=== PATIENT | female | born 1985 | race Caucasian/White ===

== ENCOUNTER → 2019-03-02 | Outpatient (CLI) | payer BC ==
[~2019-03-02] MED LIST: ACHYD1T PO; IBP800T PO; PREN1TAB39 PO
--- NOTE | 2019-03-05 10:49 | Diagnostic Imaging Report ---
INDICATION: Routine screening. COMPARISON: No prior mammograms are available for comparison. This is a baseline study. TECHNIQUE: 2D and 3D bilateral screening mammography was performed with CAD. FINDINGS: Bilateral breast implants are noted. The implant contours appear to be smooth. The breast parenchyma is heterogeneously dense, limiting the sensitivity of mammography. No discrete mass or malignant appearing microcalcifications are seen. There are benign calcifications present. The axillae are unremarkable. IMPRESSION: No mammographic features suspicious for malignancy are identified. ACR BI-RADS Category 2: Benign findings. Result letter will be mailed to the patient. Note: At least 10% of breast cancer is not imaged by mammography. Dictated by: Dictated on workstation # [id number]
== END ==
LOC: RAD 09:47
PROVIDERS: ATTEND Obstetrics & Gynecology
DX: Z12.31 Encounter for screening mammogram for malignant neoplasm of breast (principal)
CPT/HCPCS: 77067

== ENCOUNTER → 2020-10-29 | Outpatient (CLI) | payer BC ==
--- NOTE | 2020-10-29 14:38 | Diagnostic Imaging Report ---
INDICATION: Left breast lump. TECHNIQUE: Unilateral left 2D and 3D diagnostic mammography was performed. This included spot compression CC as well as routine CC and MLO implant displaced views. Conventional MLO and CC views were also performed. FINDINGS: There is a left breast implant. The implant contour is smooth. The left breast parenchyma is heterogeneously dense, limiting the sensitivity of mammography. A BB marker was placed in the medial left breast. There is a slightly nodular density just deep to the BB on the CC implant displaced view, indeterminate between nodule versus breast parenchyma or perhaps even a dilated duct. No suspicious microcalcifications are seen. The left axilla is unremarkable. IMPRESSION: Additional views show some slight residual nodularity just deep to the BB marker. Further evaluation with ultrasound is recommended and will be performed today. ACR BI-RADS Category 0: Incomplete. (Needs additional imaging evaluation). Result letter will be mailed to the patient. Note: At least 10% of breast cancer is not imaged by mammography. Dictated by: Dictated on workstation # [id number]
--- NOTE | 2020-10-29 18:11 | Diagnostic Imaging Report ---
INDICATION: Left breast lump. Correlation is made with the diagnostic mammogram from earlier the same day. Sonography interrogation area of lump left breast was performed. There is a cyst at the 6:00 location of the left breast, 3 cm from the nipple measuring 11 mm x 9 mm x 9 mm. There is some internal debris. No other masses are seen. No internal vascularity is present. IMPRESSION: BI-RADS Category 2 Slightly complex cyst 6:00 location left breast, 3 cm from the nipple, corresponding to the palpable abnormality. No further followup is indicated. ACR BI-RADS Category 2: Benign findings. Result letter will be mailed to the patient. Note: At least 10% of breast cancer is not imaged by mammography. Dictated by: Dictated on workstation # [id number]
== END ==
LOC: RAD 13:27
PROVIDERS: ATTEND Obstetrics & Gynecology
DX: N60.02 Solitary cyst of left breast (principal)
CPT/HCPCS: 76642; 77065; G0279